=== PATIENT | female | born 1990 | race Caucasian/White ===

== ENCOUNTER → 2017-08-13 13:22 | Outpatient (CLI) | payer MEDICAID, SELFPAY ==
[2017-08-13 15:23] LABS: Hematocrit 40.5 % (37-47); Hemoglobin 13.1 g/dl (12.0-15.0); Mean Corp Hgb Conc 32.3 g/gl (32-36); Mean Corpuscular Hgb 30.2 pg (27.0-32.0); Mean Corpuscular Volume 93.3 fL (81-99); Mean Platelet Vol. 10.9 fl (6.2-12.0); Platelet Count 207 K/mm3 (150-450); RBC Distribution Width CV 12.7 % (11.6-14.6); RBC Distribution Width SD 43.7 fl (35.1-43.9); Red Blood Count 4.34 M/mm3 (4.2-5.4); Scan Indicated on CBC? Y/N NO; White Blood Count 4.4 K/mm3 (4.4-11.0)
[2017-08-13 16:54] LABS: ALB/GLOB Ratio 1.3 RATIO (0.9-2.4); AST(SGOT) 18 U/L (15-37); Alanine Aminotransfer ALT/SGPT 24 U/L (13-56); Albumin, Serum 4.2 g/dL (3.2-5.0); Alkaline Phosphatase 53 U/L (45-117); Anion Gap 9 (5-15); BUN 13 mg/dL (7-18); Calcium,Total 8.6 mg/dL (8.5-10.1); Chloride 105 mmol/L (98-107); Creatinine, Serum 0.93 mg/dL (0.55-1.02); EST Glomerular Filtration Rate 77 mL/min (>60); Est Glom Filt Rate - Afr Amer 93 mL/min (>60); Estradiol 62.7 pg/mL; Follicle Stimulating Hormone 5.8 mIU/mL; Globulin 3.2 g/dL (2.2-4.2); Glucose 82 mg/dL (70-110); Potassium 3.8 mmol/L (3.5-5.1); Prolactin 4.3 ng/mL; Protein, Total 7.4 g/dL (6.4-8.2); Sodium Level 140 mmol/L (136-145); T4 Free Direct 1.25 ng/dL (0.76-1.46); Thyroid Stim Hormone (TSH) 0.61 uIU/mL (0.358-3.74)
[2017-08-14 08:35] LABS: Insulin 5.5 mU/L (2.6-37.6); Progesterone Level 0.33 ng/mL (See Comment)
[2017-08-15 09:01] LABS: Sex Hormone-binding Globulin 71.8 nmol/L (24.6-122.0)
== END ==
PROVIDERS: Visit Provider Obstetrics & Gynecology
DX: N92.6 Irregular menstruation, unspecified (principal)
CPT/HCPCS: 36415; 80053; 82306; 82533; 82627; 82670; 83001; 83002; 83525; 84144; 84146; 84270; 84403; 84439; 84443; 84481; 85027; 82626

== ENCOUNTER → 2017-09-10 16:04 | Outpatient (CLI) | payer MEDICAID, SELFPAY ==
[2017-09-16 13:50] LABS: 17-Hydroxyprogesterone 73 ng/dL (.)
[2017-09-29 14:59] LABS: DHEA Sulfate 306.6 ug/dL (84.8-378.0)
== END ==
PROVIDERS: Visit Provider Obstetrics & Gynecology
DX: N91.5 Oligomenorrhea, unspecified (principal)
CPT/HCPCS: 36415; 82627; 83498; 82626

== ENCOUNTER → 2021-01-22 | Outpatient (CLI) | payer BC, SELFPAY ==
[2021-01-25 08:18] LABS: HPV APTIMA, High Risk Negative (Negative)
== END | disposition home or self-care (01) ==
PROVIDERS: Visit Provider Obstetrics & Gynecology
DX: Z12.4 Encounter for screening for malignant neoplasm of cervix (principal)
CPT/HCPCS: 87624; 88175; G0145